=== PATIENT | female | born 1975 | race Caucasian/White ===

== ENCOUNTER 2023-07-16 15:23 | Emergency (ER) | payer BC, SELFPAY ==
[2023-07-16 15:26] VITALS: BP 152/100
[2023-07-16 15:59] LABS: % Basophils 0.5 % (0-2); % Eosinophils 0.3 % (0-6); % Immature Granulocytes 0.4 % (0-0.5); % Lymphocytes 13.8 % (20.5-51.1); % Monocytes 3.1 % (1.7-9.3); % Neutrophils 81.9 % (42.2-75.2); Absolute Monocytes 0.2 10^3/uL (0.1-0.6); Absolute Neutrophils 6.1 10^3/uL (1.4-6.5); Hemoglobin 14.7 g/dL (12.0-16.0); Mean Corp Hgb Conc. 35.9 g/dL (33.0-37.0); Mean Corpuscular Hgb 29.1 pg (27.0-31.0); Mean Platelet Volume 10.2 fL (7.4-10.4); Nucleated Red Blood Cells % 0 %; Platelet Count 317 10^3/uL (130-400); Red Blood Cell Count 5.06 10^6/uL (4.20-5.40); Red Cell Dist. Width 12.5 % (11.5-14.5); White Blood Cell Count 7.4 10^3/uL (4.8-10.8)
[2023-07-16 16:17] LABS: ALT (SGPT) 32 U/L (0-35); AST (SGOT) 33 U/L (14-36); Albumin 4.8 g/dl (3.5-5.0); Alkaline Phosphatase 102 U/L (38-126); Blood Urea Nitrogen 9 mg/dl (7-17); Calcium 10.2 mg/dl (8.4-10.2); Carbon Dioxide 23 mmol/L (22-30); Chloride 106 mmol/L (98-107); Glucose 119 mg/dl (70-99); Lipase 34 U/L (23-300); Potassium 4.1 mmol/L (3.5-5.1); Sodium 138 mmol/L (135-145); Total Bilirubin 0.8 mg/dl (0.2-1.3); eGFR > 60.00
[2023-07-16 16:18] LABS: COVID-19 Antigen Negative (Negative); HCG, Serum Qualitative Screen Negative
--- NOTE | 2023-07-16 16:55 | ED.GENMED ---
History of Present Illness
General
Chief Complaint: Headache
Time Seen by Provider: 07/16/23 16:55
Travel History
Have you had any contact with someone who has COVID-19?: No
Do you have any symptoms of coronavirus? Fever > 100 degrees, chills, cough, shortness of breath, sore throat, loss of taste or smell, muscle aches, or headache?: Yes
Symptoms:: headache
History of Present Illness
History of Present Illness:
HPI: Patient presents due to headache associate with nausea and vomiting that started around 7:00 this morning. She states she has had migraine type of headaches in the past but usually her headaches are resolved with Excedrin. This is a more
significant headache. She has not been able to eat today. Every time she tries to eat or drink she vomits. She thought maybe she had a foodborne illness as a cause of her symptoms. She has no diarrhea. She does have photophobia and ongoing
nausea
EXAM:
GENERAL: Well appearing but in mild distress, she appears to be photophobic
HEENT: Moist oral mucosa
CARDIOVASCULAR: No murmurs, normal heart rate and rhythm, No chest wall tenderness
PULMONARY: No respiratory distress, breath sounds are clear and equal
ABDOMEN: Soft with no peritoneal signs, no tenderness
NEUROLOGIC: Excellent strength all extremities, no coordination deficits
PSYCHIATRIC: Appropriate mental status, normal insight and judgement
EXTREMITIES: Nontender, no edema, moves all extremities equally
SKIN: No rash, no lesions
ED COURSE:
5:10 PM: I initially evaluated patient
NUMBER AND COMPLEXITY OF PROBLEMS ADDRESSED AT THE ENCOUNTER
� Chronic conditions affecting care: Has had headaches in the past possibly migraine type
� Acute Exacerbation and/or Progression of Chronic Illness: This is an acute problem
� Differential Diagnosis includes: Acute migraine headache, ruptured SAH very unlikely, foodborne also very unlikely
AMOUNT AND/OR COMPLEXITY OF DATA TO BE REVIEWED AND ANALYZED
� I performed an independent evaluation of and my interpretation is:
EKG:
CT: I personally viewed CT imaging and see no acute abnormality
X-rays:
Laboratory Studies: CBC and chemistries unremarkable, and COVID test negative
Other:
� Review of other/old records: The patient was here in April and had a normal hand x-ray
� Clinical information was obtained by an independent historian: I spoke to family at bedside
� Prescriptions/Medications Considered but not given:
� Further testing considered but not performed:
RISK OF COMPLICATIONS AND/OR MORBIDITY OR MORTALITY OF PATIENT MANAGEMENT
� Social determinants of health affecting care: Lives at home
� Discussion with other providers:
� Escalation of care including admission/observation vs risk of discharge considered: Given the severity of her symptoms will obtain CT imaging as she states that she has never had neuroimaging in the past. Will try Reglan with
Benadryl and Toradol and reassess. On reassessment 7 PM, the patient feels significantly improved after meds given.
Past History
Past History
ED Past Medical History: None
ED Past Surgical History: None
Social History
Tobacco: Non-smoker
Alcohol: None
Drug: None
Personal:
Living: with family
Employment: Employed
Phy Exam
Physical Exam
Physical Exam:
See HPI
Course
Orders/Labs/Results
Orders:
Orders
07/16/23 15:29
Test Result ONCE
07/16/23 15:31
COVID-19 Antigen Urgent
Source: Nasal Swab
Complete Blood Count/With Diff Urgent
Comprehensive Metabolic Panel Urgent
HCG, Serum Qualitative Screen Urgent
Lipase Urgent
07/16/23 17:12
CT Head W/o Iv Contrast Urgent
Comment:
Reason For Exam: new severe HENAO w/ vomiting
Diphenhydramine [Benadryl] 25 mg IV NOW STA
Ketorolac [Toradol] 15 mg IV NOW STA
Metoclopramide [Reglan] 10 mg IV NOW STA
07/16/23 17:14
0.9% Sodium Chloride 1000 ml [Nss] 1,000 ml IV BOLUS
Abnormal Lab Results
07/16/23
15:31
Absolute Lymphs (auto) 1.0 L 10^3/uL
(1.2-3.4)
Neutrophils % 81.9 H %
(42.2-75.2)
Lymphocytes % 13.8 L %
(20.5-51.1)
Glucose 119 H mg/dl
(70-99)
07/16/23 15:31
07/16/23 15:31
Vital Signs
Initial and Last Documented VS:
Initial Vital Signs
Temp Pulse Resp BP Pulse Ox
98.2 F 93 18 152/100 98
07/16/23 15:26 07/16/23 15:26 07/16/23 15:26 07/16/23 15:26 07/16/23 15:26
Last Documented Vital Signs
Temp Pulse Resp BP Pulse Ox
98.2 F 80 18 128/79 99
07/16/23 15:26 07/16/23 18:17 07/16/23 18:17 07/16/23 18:17 07/16/23 18:17
*Critical Care Note
Total Time (30-74mins, 75-104mins- exclusive of procedures): Not Applicable
ED Attending Note
-
Portions of this chart may have been created with voice recognition software.� Occasional wrong word or��sound alike� substitutions may have occurred due to the inherent limitations of voice recognition software.
Discharge Plan
Departure
Patient Disposition: Home (Routine Discharge)
Date of Disposition: 07/16/23
Time of Disposition: 19:44
Patient with high blood pressure during this ER visit?: Yes
Discharge Problem:
Migraine headache
Instructions: Migraines (DC), BLOOD PRESSURE
Referrals:
Sunshine Chow CRNP [Family Provider] -
Activity Restrictions/Additional Instructions:
CAT scan of the brain showed no abnormality. Basic blood work was normal. We gave you Reglan with Benadryl along with Toradol. Return here if worse
Interventions
Interventions:
*Risk Screen - Suicide Last Done: 07/16/23 16:59
*General Assessment Last Done: 07/16/23 15:26
*Neglect/Abuse Screening Last Done: 07/16/23 16:59
*ED COVID-19 Vaccine History Last Done: 07/16/23 15:26
ED- Neurological Assessment Last Done: 07/16/23 16:59
[2023-07-16 16:59] VITALS: BMI 27.7
[2023-07-16] MEDS: NSS 1000 IV (17:20)
[2023-07-16] MEDS: REGLAN 10 MG IV (17:21)
[2023-07-16] MEDS: TORADOL 15 MG IV (17:21)
[2023-07-16] MEDS: BENADRYL 25 MG IV (17:21)
[2023-07-16 18:17] VITALS: BP 128/79
== END 2023-07-16 20:10 | disposition home or self-care (01) ==
LOC: EMR 15:23
PROVIDERS: Emergency Medicine; EMERGENCY PHYSICIAN Emergency Medicine; FAMILY PHYSICIAN Nurse Practitioner Family
DX: G43.909 Migraine, unspecified, not intractable, without status migrainosus (principal); R11.2 Nausea with vomiting, unspecified
CPT/HCPCS: 99285; 96374; 96375 ×2; 96361; 70450; 80053; 83690; 84703; 85025; 87811

== ENCOUNTER → 2024-11-08 14:37 | Outpatient (REF) | payer BC, SELFPAY | LOC: HWWDC 14:37 | PROVIDERS: ATTENDING PHYSICIAN Obstetrics & Gynecology Gynecology; FAMILY PHYSICIAN Nurse Practitioner Family | DX: Z12.31 Encounter for screening mammogram for malignant neoplasm of breast (principal) | CPT/HCPCS: 77063; 77067 ==